=== PATIENT | female | born 1960 | race Caucasian/White ===

== ENCOUNTER 2022-07-08 17:06 | Emergency (ER) | payer OTHER, SELFPAY ==
[2022-07-08] VITALS (29 sets, daily range): BP systolic 108–153; BP diastolic 58–78; PULSE 76–94; RESP 15–27; O2SAT 88–100; BMI 35.9
--- NOTE | 2022-07-08 17:22 | DI.RAD.S_ITS ---
PROCEDURE: XR ANKLE LT 2V INDICATIONS: fall- gross deformity TECHNIQUE: Two views of the ankle were acquired. COMPARISON: None. FINDINGS: Bones: Displaced bimalleolar fracture dislocation. There is marked lateral displacement of the ankle joint. A posterior malleolar fracture is not excluded. Soft tissues: Achilles tendon not well seen. Gross soft tissue deformity. No radiodense foreign bodies. IMPRESSION: 1. Displaced bimalleolar fracture dislocation. Recommend reimaging following reduction to exclude a trimalleolar fracture. Dictated by: Komal Mullins M.D. on 07/08/2022 at 18:40 Approved by: Komal Mullins M.D. on 07/08/2022 at 18:41
[2022-07-08] MEDS: propofoL 200 MG/20 ML VIAL 85 MG IV (18:16)
[2022-07-08] MEDS: ONDANSETRON 4 MG/2 ML INJ IV (18:20)
--- NOTE | 2022-07-08 18:26 | DI.RAD.S_ITS ---
PROCEDURE: XR ANKLE LT 2V INDICATIONS: post reduction TECHNIQUE: Two views of the ankle were acquired. COMPARISON: [facility], CR, XR ANKLE LT 2V, 07/08/2022, 17:26. FINDINGS: Bones: Overlying splint material. There is markedly improved, near anatomic alignment of the ankle. Minimally displaced lateral and medial malleolar fractures are seen. There is a small minimally displaced anterior malleolar fracture and probably a posterior malleolar impaction injury. The ankle mortise is grossly intact. Soft tissues: Soft tissue definition is suboptimal. IMPRESSION: 1. Congregation of near anatomic alignment following reduction. 2. Probable trimalleolar fracture, now minimally displaced. Dictated by: Komal Mullins M.D. on 07/08/2022 at 19:26 Approved by: Komal Mullins M.D. on 07/08/2022 at 19:29
--- NOTE | 2022-07-08 18:31 | ED_ITS ---
HPI - Extremity Injury (Lower) General Chief Complaint: Extremity Injury, Lower Stated Complaint: left ankle injury Time Seen by Provider: 07/08/22 17:45 Source: patient and EMS Mode of arrival: EMS History of Present Illness HPI Narrative: 62-year-old female nonsmoker presents by EMS for evaluation of obvious severe left ankle injury. She and her were walking at a local park when she lost her balance and rolled her ankle resulting in the significant injury. She denies head neck or back pain. She denies any knee, hip or back pain. She denies chest pain or shortness of breath. She denies any prodromal symptoms that contributed to her fall such as dizziness, weakness or lightheadedness. She merely slipped on uneven ground and fell as mentioned above. She denies numbness, tingling or weakness. She is transported by EMS with vacuum splint in place. She had received ketamine 25 mg and fentanyl 100 mcg prior to her arrival Related Data Previous Rx's Medication Instructions Recorded ondansetron 4 mg disintegrating 4 mg PO TID-QID PRN nausea and 07/08/22 tablet vomiting #10 tabs oxycodone 5 mg tablet 5 mg PO Q4-6H PRN pain #30 tabs 07/08/22 Allergies Allergy/AdvReac Type Severity Reaction Status Date / Time No Known Drug Allergies Allergy Verified 07/08/22 17:15 Review of Systems Review of Systems Narrative: GENERAL: Denies chills, fatigue, malaise, fever, sweats. HEENT: Denies sinus pain, ear pain, sore throat, difficulty swallowing, dizziness. RESPIRATORY: Denies dyspnea, cough, wheezing, hemoptysis, sputum. CARDIOVASCULAR: Denies chest pain, palpitations, orthopnea, edema, GASTROINTESTINAL: Denies nausea, vomiting, abdominal pain, diarrhea, constipation, melena. : Denies dysuria, frequency, incontinence, hematuria, urinary retention. MUSCULOSKELETAL: See HPI SKIN: Denies rash, skin lesions, or other NEUROLOGIC: Denies weakness, headache, numbness, change in speech, confusion, seizures, incoordination. PSYCHIATRIC: No concerning psychosocial issues. 12 point review of systems is negative except for those stated above Patient History Social History Smoking Status: Never smoker Smoking Status: Never smoker Substance Use Type: does not use Exam Narrative Exam Narrative: GENERAL: [62] year old patient appears stated age. Well-developed patient, in obvious distress, in significant pain HEAD: Atraumatic. Normocephalic. EYES: Pupils equal round and reactive. Extraocular motions intact. No scleral icterus. No injection or drainage. ENT: Nose without bleeding, purulent drainage. Throat without erythema, tonsillar hypertrophy or exudate. Airway patent. NECK: Trachea midline. Non tender CARDIOVASCULAR: Regular rate and rhythm without murmurs, gallops, or rubs. RESPIRATORY: Clear to auscultation. Breath sounds equal bilaterally. No wheezes, rales, or rhonchi. GASTROINTESTINAL: Abdomen soft, non-tender, nondistended. EXTREMITIES: Obvious deformity of left ankle consistent with fracture dislocation. This is closed, isolated and neurovascularly intact, she can wiggle her toes cap refill less than 2 seconds. No pain on remainder of tib-fib or knee. BACK: Nontender without deformity or crepitance. No flank tenderness. NEURO: AOx3. SKIN: No rash or erythema of visible areas Initial Vital Signs Initial Vital Signs: Vital Signs Pulse Rate 83 07/08/22 17:15 Respiratory Rate 18 07/08/22 17:15 Blood Pressure 142/78 H 07/08/22 17:15 Pulse Oximetry 91 07/08/22 17:15 Oxygen Delivery Method 07/08/22 17:15 Procedures Orthopedic Joint Reduction Joint #1: Time Out Performed: Yes Side: left Joint Reduction Location: ankle Technique used: traction/counter-traction and direct manipulation Post-reduction neuro exam: intact Post-reduction vascular: intact Post Reduction X-Ray Obtained: Yes Post Reduction X-Ray Results: reduced Splint Applied: Yes Patient Tolerated Procedure: Well Orthopedic Splinting/Casting Injury #1: Side: left Lower Extremity Injury Location: ankle Lower Extremity Immobilizer: posterior splint and stirrup splint Other Orthopedic Equipment: crutches Post splinting neuro exam: intact Post splinting vascular exam: intact Placed by: Provider Procedural Sedation Consent signed: Yes Time out performed: Yes Indication: fracture/dislocation reduction ASA Class: II Mallampati Airway Classification: Class II Preparation: equipment monitor phototypesetting applied, pulse oximeter, capnometry used, supplemental O2 applied, suction/airway equipment at bedside and IV secured Ketamine dose (mg): 65 IV Propofol dose (mg): 65 Intraservice time/total sedation time (min): 15 ED Sedation Level: Moderate (Concious) Patient Tolerated Procedure: Well Complications: hypoxia Interventions: Airway repositioned Course Orders Ordered: Discontinued Medications Ketamine HCl (Ketamine 500 Mg/5 Ml Inj) 85 mg 1 mg/kg (85 mg) IV NOW ONE Stop: 07/08/22 17:51 Last Admin: 07/08/22 19:00 Dose: 60 mg Documented By: STEVEN Ondansetron HCl (Ondansetron 4 Mg/2 Ml Inj) 4 mg IV NOW ONE Stop: 07/08/22 18:40 Last Admin: 07/08/22 18:20 Dose: 4 mg Documented By: STEVEN Ondansetron HCl (Ondansetron 4 Mg Odt Prepack) 1 bottle MISC SEEINSTR ONE Stop: 07/08/22 20:10 Last Admin: 07/08/22 20:21 Dose: 1 bottle Documented By: FANY Oxycodone/Acetaminophen (Oxycodone/Apap 5/325 Prepack) 1 bottle MISC SEEINSTR ONE Stop: 07/08/22 20:10 Last Admin: 07/08/22 20:21 Dose: 1 bottle Documented By: FANY Propofol (Propofol 200 Mg/20 Ml Vial) 85 mg 1 mg/kg (85 mg) IV NOW ONE Stop: 07/08/22 17:51 Last Admin: 07/08/22 18:16 Dose: 60 mg Documented By: STEVEN Consultations Consultation #1: Discussed with Dr. Romeo (orthopedics), he is reviewed history, physical exam as well as pre and postreduction imaging, recommends nonweightbearing, pain control, typical return precautions and follow-up with the office Vital Signs Vital signs: Vital Signs - 8 hr 07/08/22 17:15 07/08/22 17:57 07/08/22 17:59 Pulse Rate 83 76 Respiratory Rate 18 Blood Pressure 142/78 H 126/63 Pulse Oximetry 91 89 L Oxygen Delivery Method Room Air Oxygen Flow Rate 07/08/22 17:59 07/08/22 18:00 07/08/22 18:00 Pulse Rate 79 79 Respiratory Rate 15 17 Blood Pressure 125/64 Pulse Oximetry 97 97 Oxygen Delivery Method Oxygen Flow Rate 07/08/22 18:05 07/08/22 18:05 07/08/22 18:10 Pulse Rate 82 Respiratory Rate 19 Blood Pressure 128/64 119/58 L Pulse Oximetry 97 Oxygen Delivery Method Oxygen Flow Rate 07/08/22 18:10 07/08/22 18:15 07/08/22 18:15 Pulse Rate 82 82 Respiratory Rate 16 16 Blood Pressure 108/60 Pulse Oximetry 97 98 Oxygen Delivery Method Oxygen Flow Rate 07/08/22 18:20 07/08/22 18:20 07/08/22 18:25 Pulse Rate 86 Respiratory Rate 21 Blood Pressure 145/78 H 153/72 H Pulse Oximetry 88 L Oxygen Delivery Method Oxygen Flow Rate 07/08/22 18:25 07/08/22 18:30 07/08/22 18:30 Pulse Rate 90 86 Respiratory Rate 23 19 Blood Pressure 146/66 H Pulse Oximetry 100 92 Oxygen Delivery Method Oxygen Flow Rate 07/08/22 18:34 07/08/22 18:35 07/08/22 18:20 Pulse Rate 80 84 Respiratory Rate 16 18 Blood Pressure 147/71 H Pulse Oximetry 99 Oxygen Delivery Method Nasal Cannula Oxygen Flow Rate 2 07/08/22 18:35 07/08/22 18:40 07/08/22 18:40 Pulse Rate 81 85 Respiratory Rate 23 21 Blood Pressure 146/67 H Pulse Oximetry 98 94 Oxygen Delivery Method Nasal Cannula Oxygen Flow Rate 2 0 07/08/22 18:45 07/08/22 18:45 07/08/22 18:50 Pulse Rate 87 Respiratory Rate 22 Blood Pressure 138/63 146/60 H Pulse Oximetry 94 Oxygen Delivery Method Oxygen Flow Rate 07/08/22 18:50 07/08/22 18:55 07/08/22 18:55 Pulse Rate 83 79 Respiratory Rate 24 27 H Blood Pressure 140/61 Pulse Oximetry 97 97 Oxygen Delivery Method Oxygen Flow Rate 07/08/22 19:00 07/08/22 19:00 07/08/22 19:05 Pulse Rate 79 Respiratory Rate 25 H Blood Pressure 136/62 122/61 Pulse Oximetry 96 Oxygen Delivery Method Oxygen Flow Rate 07/08/22 19:05 07/08/22 19:10 07/08/22 19:10 Pulse Rate 77 86 Respiratory Rate 15 27 H Blood Pressure 124/65 Pulse Oximetry 96 96 Oxygen Delivery Method Oxygen Flow Rate 07/08/22 19:15 07/08/22 19:15 07/08/22 19:20 Pulse Rate 78 Respiratory Rate 19 Blood Pressure 121/62 136/62 Pulse Oximetry 96 Oxygen Delivery Method Oxygen Flow Rate 07/08/22 19:20 Pulse Rate 94 H Respiratory Rate 20 Blood Pressure Pulse Oximetry 97 Oxygen Delivery Method Oxygen Flow Rate MDM - Extremity Injury (Lower) Lab Data Labs: Point of Care Testing Test Results Not applicable Imaging Data Extremity x-ray #1: Radiologist's Impression: ? Chart Viewer Diagnostics Subcategory All Activity ??:?? All Time ??:?? All Subcategories Filter Laboratory Imaging Microbiology Pathology Blood Bank Tests Cardiovascular Other Specialty DATE TYPE STATUS REF RANGE/AUTHOR Hx Today 18:33 Knee X-Ray Signed Harpreet,Komal Today 18:26 Ankle X-Ray Signed Komal Mullins Today 17:22 Ankle X-Ray Signed Harpreet,Komal Ness Kohler ED 62, F?1960 MRN#? [id number] [facility] ER,?Main ED??R11?? 154.94cm 86.183kg BMI: 35.9kg/m? Extremity Injury, Lower Acc#? [id number] Resus Status Not Ordered No Hx Avail Special Indicators No Data to Display Home Meds Confirmed Prescription Monitoring Program Total 45 MME/Day MEDICATIONS (INSTRUCTIONS) LAST TAKEN Active ondansetron 4 mgPOTID-QIDPRNnausea and vomiting#10 tabs oxycodone 5 mgPOQ4-6HPRNpain#30 tabs 45 MME/Day Allergies No Known Drug Allergies Problems ? ONSET Ankle fracture Vital Signs Today 19:20 BP 136/62? Pulse 94?H Resp 20? O2 Sat 97? Diagnostics Reports Ness Kohler??62??F??1960 ? Allergy/Adv: No Known Drug Allergies Close Knee X-Ray (Signed) Harpreet,Komal - 07/08/22 Ankle X-Ray (Signed) Harpreet,Komal - 07/08/22 Ankle X-Ray (Signed) Harpreet,Komal - 07/08/22 Launch?[address] [address] XRay Report Signed Patient: Ness Kohler MR#: [id number] : 1960 Acct:[id number] Age/Sex: 62 / F Date of Service: 07/08/22 Loc: ED Accession Number: [id number] ?? Procedure: XR ankle LT 2V Ordering Provider: Johann Bland D.O. PROCEDURE:? XR ANKLE LT 2V ? INDICATIONS:? fall- gross deformity ? TECHNIQUE:? Two views of the ankle were acquired.? ? COMPARISON:? None. ? FINDINGS:? ? Bones:? Displaced bimalleolar fracture dislocation.? There is marked lateral di splacement of the ankle joint.? A posterior malleolar fracture is not excluded. ? Soft tissues:? Achilles tendon not well seen.? Gross soft tissue deformity.? No radiodense foreign bodies. ? ? IMPRESSION:? ? 1. Displaced bimalleolar fracture dislocation.? Recommend reimaging following reduction to exclude a trimalleolar fracture.? Dictated by: Komal Mullins M.D. on 07/08/2022 at 18:40 ? ? Approved by: Komal Mulilns M.D. on 07/08/2022 at 18:41 ? Extremity x-ray #2: Radiologist's Impression: Close Knee X-Ray (Signed) Komal Mullins - 07/08/22 Ankle X-Ray (Signed) Harpreet,Komal - 07/08/22 Ankle X-Ray (Signed) Harpreet,Komal - 07/08/22 Launch?[place] [address] XRay Report Signed Patient: Ness Kohler MR#: [id number] : 1960 Acct:[id number] Age/Sex: 62 / F Date of Service: 07/08/22 Loc: ED Accession Number: [id number] ?? Procedure: XR ankle LT 2V Ordering Provider: Johann Bland D.O. PROCEDURE:? XR ANKLE LT 2V ? INDICATIONS:? post reduction ? TECHNIQUE:? Two views of the ankle were acquired.? ? COMPARISON:? [facility], CED, XR ANKLE LT 2V, 07/08/2022, 17:26. ? FINDINGS:? ? Bones:? Overlying splint material.? There is markedly improved, near anatomic alignment of the ankle.? Minimally displaced lateral and medial malleolar fractures are seen.? There is a small minimally displaced anterior malleolar fracture and probably a posterior malleolar impaction injury.? The ankle mortise is grossly intact. ? Soft tissues:? Soft tissue definition is suboptimal. ? ? IMPRESSION:? ? 1. Mosque of near anatomic alignment following reduction. ? 2. Probable trimalleolar fracture, now minimally displaced.? Dictated by: Komal Mullins M.D. on 07/08/2022 at 19:26 ? ? Approved by: Komal Mullins M.D. on 07/08/2022 at 19:29 ? Extremity x-ray #3: Radiologist's Impression: Close Knee X-Ray (Signed) Harpreet,Komal - 07/08/22 Ankle X-Ray (Signed) Harpreet,Komal - 07/08/22 Ankle X-Ray (Signed) Harpreet,Komal - 07/08/22 Launch?[place] [address] XRay Report Signed Patient: Ness Kohler MR#: [id number] : 1960 Acct:[id number] Age/Sex: 62 / F Date of Service: 07/08/22 Loc: ED Accession Number: [id number] ?? Procedure: XR ankle LT 2V Ordering Provider: Johann Bland D.O. PROCEDURE:? XR ANKLE LT 2V ? INDICATIONS:? post reduction ? TECHNIQUE:? Two views of the ankle were acquired.? ? COMPARISON:? [facility], CED, XR ANKLE LT 2V, 07/08/2022, 17:26. ? FINDINGS:? ? Bones:? Overlying splint material.? There is markedly improved, near anatomic alignment of the ankle.? Minimally displaced lateral and medial malleolar fractures are seen.? There is a small minimally displaced anterior malleolar fracture and probably a posterior malleolar impaction injury.? The ankle mortise is grossly intact. ? Soft tissues:? Soft tissue definition is suboptimal. ? ? IMPRESSION:? ? 1. Mosque of near anatomic alignment following reduction. ? 2. Probable trimalleolar fracture, now minimally displaced.? Dictated by: Komal Mullins M.D. on 07/08/2022 at 19:26 ? ? Approved by: Komal Mullins M.D. on 07/08/2022 at 19:29 ? MDM Narrative Medical decision making narrative: 62-year-old female with significant left ankle injury consisting of fracture dislocation which thankfully is closed, isolated and neurovascularly intact. She is given a combination of propofol and ketamine in the ED, reduced and splinted. SHe is given extensive return precautions regarding elements of compartments syndrome among others. As local pharmacies are closed she is given pre packs of Percocet as well as ondansetron. I have given her contact information for local orthopedics, however she lives in [place] and I have included contact information for the Orthopedic Clinic as provided by the [facility] emergency department. She is been given return precautions as discussed, questions have been answered to her apparent satisfaction Discharge Plan Departure Patient Disposition: Home Clinical Impression: Ankle fracture Instructions: DI for Ankle Fracture Activity Restrictions/Additional Instructions: *You have been diagnosed with [left ankle fracture dislocation] *What to do: *Please continue to take your regular medications as directed. [ x] New medication prescriptions sent to your pharmacy: [[facility] ] [ ] New medication written as a paper prescription [x] Tylenol and occasional Motrin for pain *Please follow up with [Agueda ] of [facility] in 2-3 days, call for an appointment. Let them know you were seen in the Emergency Department and that we ask that you be seen in follow up. We will electronically transmit a record of today's note if your PCP is in our system * as we discussed I called the emergency department at [facility] in [place] on your behalf, they state you can call their orthopedic clinic for follow up at [phone]. Please call the office on Monday or Monday, let them know you were seen in our emergency department and we would like you seen in follow-up for your fracture *Return to Emergency Department if you should have any new, worsening or concerning symptoms, such as [worsening pain, significant swelling, cold extremities, numbness, tingling, weakness or other bothersome symptoms Splint Care: Keep splint clean and dry. Elevated affected body part to decrease swelling. OK to use ice pack on the affected body part. Use for 15-20 minutes each time, for 5-6x per day. If you develop worsening pain, numbness, tingling, discoloration of the affected body part, loosen the splint by loosening the DE wrap, and either see your doctor for an urgent re-assessment, or return to the Emergency Department. Return to the Emergency Department for any new or worsening symptoms. Prescriptions: New ondansetron 4 mg tablet,disintegrating 4 mg PO TID-QID PRN (Reason: nausea and vomiting) Qty: 10 0RF oxycodone 5 mg tablet 5 mg PO Q4-6H PRN (Reason: pain) Qty: 30 0RF Referrals: Michael Romeo MD [Physician] -
--- NOTE | 2022-07-08 18:33 | DI.RAD.S_ITS ---
PROCEDURE: XR KNEE LT 1TO2V INDICATIONS: knee pain, obvious significant ankle injury TECHNIQUE: Two views of the knee were acquired. COMPARISON: None. FINDINGS: Bones: No fractures or dislocations. No suspicious bony lesions. Soft tissues: No joint effusion. No suspicious soft tissue calcifications. IMPRESSION: The knee joint is intact. Dictated by: Komal Mullins M.D. on 07/08/2022 at 19:26 Approved by: Komal Mullins M.D. on 07/08/2022 at 19:26
--- NOTE | 2022-07-08 18:41 | RT ---
at bedside for prs for ankle reduction. etco2 placed on pt and on 2 lpm nc, bag mask unit at [facility] with suction on and functional. pt rukhsana well, slight jaw thrust applied without incident. pt awake and responding to questions, on room air and released by rn. no distress noted
[2022-07-08] MEDS: KETAMINE 500 MG/5 ML INJ 85 MG IV (19:00)
[2022-07-08] MEDS: OXYCODONE/APAP 5/325 PREPACK 1 BOTTLE MISC (20:21)
[2022-07-08] MEDS: ONDANSETRON 4 MG ODT PREPACK 1 BOTTLE MISC (20:21)
== END 2022-07-08 20:22 | disposition home or self-care (01) ==
PROVIDERS: Emergency Provider Emergency Medicine
DX: S82.852A Displaced trimalleolar fracture of left lower leg, initial encounter for closed fracture (principal); X50.1XXA Overexertion from prolonged static or awkward postures, initial encounter
CPT/HCPCS: 27818; 29515; 73560; 73600; 96374; 99152; 99284; 99285; J2405; J2704